=== PATIENT | female | born 1945 | race American Indian/Alaskan Native ===

== ENCOUNTER 2018-01-20 22:27 | Inpatient (IN) | payer BC, MEDICARE ==
--- NOTE | 2018-01-20 22:58 | C.PDOC ---
Chief Complaint (Nursing): Chest Pain Past Medical History Vital Signs: Last Vital Signs Temp 97.6 F 01/20/18 22:46 Pulse 94 H 01/20/18 22:46 Resp 26 H 01/20/18 22:46 BP 175/90 H 01/20/18 22:46 Pulse Ox 98 01/20/18 22:46 - Medical History PMH: Arthritis, Diabetes ("boarderline"), Diverticulitis, Hiatal Hernia, HTN Surgical History: Pacemaker - [facility] Procedures ANESTH INJECT-SPIN CANAL (01/08/05) INJECT STEROID (01/08/05) SPINAL CANAL INJECT NEC (01/08/05) Family History: States: Unknown Family Hx - Social History Hx Tobacco Use: No Hx Alcohol Use: No Hx Substance Use: No - Immunization History Hx Tetanus Toxoid Vaccination: Yes Hx Influenza Vaccination: Yes Hx Pneumococcal Vaccination: No ED Course And Treatment O2 Sat by Pulse Oximetry: 98 Disposition - Disposition
--- NOTE | 2018-01-20 23:05 | C.PDOC ---
History Of Present Illness 72 year old female with a Hx of NIDDM, HTN, HLD, s/p pacemaker presents to the ER with a complaint of upper back pain for the past several days that radiates to the upper chest. Patient states the pain is positional, it seems to be relieved by belching and worsened by movement of the shoulders and flexion of the neck. Denies SOB, diaphoresis, or prior CAD. Chief Complaint (Nursing): Chest Pain History Per: Patient History/Exam Limitations: no limitations Onset/Duration Of Symptoms: Days Current Symptoms Are (Timing): Still Present Associated Symptoms: denies: Nausea, Dyspnea, Diaphoresis, Syncope Modifying Factors: None Exacerbating Factors: Movement (Shoulders), Other (Flexion of neck) Alleviating Factors: None Recent travel outside of the [place]: No Past Medical History Reviewed: Historical Data, Nursing Documentation, Vital Signs Vital Signs: Last Vital Signs Temp 97.6 F 01/20/18 22:46 Pulse 60 01/21/18 05:33 Resp 22 01/21/18 05:33 BP 163/67 H 01/21/18 05:33 Pulse Ox 97 01/21/18 05:33 - Medical History PMH: Arthritis, Diabetes ("boarderline"), Diverticulitis, Hiatal Hernia, HTN Surgical History: Pacemaker - [facility] Procedures ANESTH INJECT-SPIN CANAL (01/08/05) INJECT STEROID (01/08/05) SPINAL CANAL INJECT NEC (01/08/05) Family History: States: Unknown Family Hx - Social History Hx Tobacco Use: No Hx Alcohol Use: No Hx Substance Use: No - Immunization History Hx Tetanus Toxoid Vaccination: Yes Hx Influenza Vaccination: Yes Hx Pneumococcal Vaccination: No Review Of Systems Constitutional: Negative for: Fever, Chills Cardiovascular: Positive for: Chest Pain Respiratory: Negative for: Shortness of Breath Gastrointestinal: Negative for: Nausea, Vomiting, Abdominal Pain Musculoskeletal: Positive for: Back Pain Physical Exam - Physical Exam Appears: Non-toxic, Other (Awake, alert) Skin: Normal Color, Warm, Dry Head: Atraumatic, Normacephalic Eye(s): bilateral: Normal Inspection Oral Mucosa: Moist Neck: Paracervical Tenderness (Over left trapezious with reproducible pain), Supple, Other (.Reproducible pain with flexion of the neck but no true meningismus. Left sternocleidomastoid tenderness with palpation) Chest: Symmetrical, Tenderness (On palpation) Cardiovascular: Rhythm Regular Respiratory: Normal Breath Sounds, No Rales, No Rhonchi, No Wheezing Gastrointestinal/Abdominal: Soft, No Tenderness, Hernia (Ventral) Back: No Vertebral Tenderness, No Paraspinal Tenderness Extremity: Normal ROM (x4) Neurological/Psych: Oriented x3, Normal Speech ED Course And Treatment - Laboratory Results Result Diagrams: 01/20/18 23:03 01/20/18 23:03 ECG: Interpreted By Me, Viewed By Me ECG Rhythm: V Paced (Atrial sensing) Interpretation Of ECG: QRS left bundloid configuration, no old EKGs for comparison. Rate From EC O2 Sat by Pulse Oximetry: 98 (Room air) Pulse Ox Interpretation: Normal - CT Scan/US CTA Other Rad Studies (CT/US): Read By Radiologist, Radiology Report Reviewed CT/US Interpretation: EXAM: CT Angiography Chest With Intravenous Contrast. CLINICAL HISTORY: 72 years old, female; Pain; Chest pain; Prior surgery; Surgery type: Pacemaker. TECHNIQUE: Axial computed tomographic angiography images of the chest with intravenous contrast using. pulmonary embolism protocol. All CT scans at this facility use one or more dose reduction. techniques, viz.: automated exposure control; ma/kV adjustment per patient size (including targeted. exams where dose is matched to indication; i.e. head); or iterative reconstruction technique. MIP reconstructed images were created and reviewed. Coronal and sagittal reformatted images were created and reviewed. CONTRAST: 100 mL of administered intravenously. COMPARISON: No relevant prior studies available. FINDINGS: Limitations: Motion artifact - mild to moderate. Pulmonary arteries: Few apparent defects along subsegmental branches of right lower lobe. pulmonary artery. No saddle embolus. Aorta: Mild atherosclerotic disease. No aneurysm. Lungs: Mild atelectasis/scarring. No consolidation. Pleural space: No significant effusion. No pneumothorax. Heart: [id number] cardiomegaly. Small to moderate pericardial effusion. Mediastinum: Small hiatal hernia. Bones/joints: Degenerative changes of spine. No acute fracture. Soft tissues: Unremarkable. Lymph nodes: No pathologically enlarged lymph nodes. Adrenals: Mild hypertrophy of adrenal glands. Tubes, lines and devices: RIGHT pacemaker. IMPRESSION: 1. Apparent distal pulmonary emboli. 2. Incidental/non-acute findings are described above. Medical Decision Making Medical Decision Making: Impression is atypical chest pain, likely musculoskeletal in origin, will send routine blood work, order EKG and analgesics. Disposition - Disposition Disposition: HOSPITALIZED Disposition Time: 06:57 Condition: FAIR - Clinical Impression Clinical Impression: Pulmonary embolism - Scribe Statement The provider has reviewed the documentation as recorded by the Scribtaylor Zuluaga All medical record entries made by the Scribe were at my direction and personally dictated by me. I have reviewed the chart and agree that the record accurately reflects my personal performance of the history, physical exam, medical decision making, and the department course for this patient. I have also personally directed, reviewed, and agree with the discharge instructions and disposition.
[2018-01-20 23:06] LABS: BASO % 0.5 % (0.0-2.0); EOS # 0.1 K/uL (0.0-0.7); EOS % 1.1 % (0.0-4.0); HEMOGLOBIN 13.5 g/dL (11.0-16.0); LYMPH # 2.5 K/uL (1.0-4.3); LYMPH % 30.7 % (20.0-40.0); MEAN CELL VOLUME 88.1 fL (81.0-99.0); MEAN CORPUSCULAR HEMOGLOBIN 31.2 pg (27.0-31.0); MEAN CORPUSCULAR HGB CONC 35.5 g/dL (33.0-37.0); MEAN PLATELET VOLUME 9.1 fL (7.2-11.7); MONO # 0.9 K/uL (0.0-0.8); MONO % 10.7 % (0.0-10.0); NEUT # 4.7 K/uL (1.8-7.0); RBC 4.33 Mil/uL (3.80-5.20); RED CELL DISTRIBUTION WIDTH 13.7 % (11.5-14.5); WHITE BLOOD COUNT 8.2 K/uL (4.8-10.8)
[2018-01-20 23:19] LABS: CALCIUM 8.7 mg/dl (8.6-10.4); GFR AFRICAN-AMERICAN > 60; GFR NON-AFRICAN AMERICAN > 60
[2018-01-20 23:22] LABS: ALT/SGPT 16 U/L (9-52); AST/SGOT 37 U/L (14-36); BLOOD UREA NITROGEN 13 mg/dL (7-17)
--- NOTE | 2018-01-21 02:57 | CT ---
EXAM: CT Angiography Chest With Intravenous Contrast CLINICAL HISTORY: 72 years old, female; Pain; Chest pain; Prior surgery; Surgery type: Pacemaker TECHNIQUE: Axial computed tomographic angiography images of the chest with intravenous contrast using pulmonary embolism protocol. All CT scans at this facility use one or more dose reduction techniques, viz.: automated exposure control; ma/kV adjustment per patient size (including targeted exams where dose is matched to indication; i.e. head); or iterative reconstruction technique. MIP reconstructed images were created and reviewed. Coronal and sagittal reformatted images were created and reviewed. CONTRAST: 100 mL of [id number] administered intravenously. COMPARISON: No relevant prior studies available. FINDINGS: Limitations: Motion artifact - mild to moderate. Pulmonary arteries: Few apparent defects along subsegmental branches of right lower lobe pulmonary artery. No saddle embolus. Aorta: Mild atherosclerotic disease. No aneurysm. Lungs: Mild atelectasis/scarring. No consolidation. Pleural space: No significant effusion. No pneumothorax. Heart: [id number] cardiomegaly. Small to moderate pericardial effusion. Mediastinum: Small hiatal hernia. Bones/joints: Degenerative changes of spine. No acute fracture. Soft tissues: Unremarkable. Lymph nodes: No pathologically enlarged lymph nodes. Adrenals: Mild hypertrophy of adrenal glands. Tubes, lines and devices: RIGHT pacemaker. IMPRESSION: 1. Apparent distal pulmonary emboli. 2. Incidental/non-acute findings are described above.
[2018-01-21] MEDS ORDERED: Heparin25000 units/250ml 1/2NS 25,000 UNITS/250 ML BAG IV ONE (03:16)
[2018-01-21 06:16] LABS: HDL CHOLESTEROL 69 mg/dL (30-70)
[2018-01-21 06:27] LABS: LDL CHOLESTEROL 91 mg/dL (0-129)
[2018-01-21 08:25] LABS: SQUAMOUS EPITHIAL < 1 /hpf (0-5); URINE AMORPHOUS SEDIMENT FEW /ul (<OCC); URINE BILIRUBIN NEGATIVE (NEGATIVE); URINE BLOOD 1+ (NEGATIVE); URINE CLARITY Hazy (Clear); URINE COLOR Yellow (YELLOW); URINE GLUCOSE (UA) NORMAL (Normal); URINE LEUKOCYTE ESTERASE NEG Leu/uL (Negative); URINE PROTEIN NEGATIVE (NEGATIVE); URINE UROBILINOGEN NORMAL mg/dL (0.2-1.0)
--- NOTE | 2018-01-21 08:43 | RAD ---
PROCEDURE: CHEST RADIOGRAPH, 1 VIEW HISTORY: chest pain COMPARISON: None available. FINDINGS: LUNGS: The lungs are well inflated and clear. PLEURA: No pneumothorax or pleural fluid seen. CARDIOVASCULAR: There is moderate cardiomegaly. There is right-sided dual lead transvenous permanent pacing device. OSSEOUS STRUCTURES: No significant abnormalities. VISUALIZED UPPER ABDOMEN: Normal. OTHER FINDINGS: None. IMPRESSION: No acute findings.
[2018-01-21 09:28] LABS: ALBUMIN 3.5 g/dL (3.5-5.0); ALT/SGPT 26 U/L (9-52); AST/SGOT 60 U/L (14-36); BLOOD UREA NITROGEN 10 mg/dL (7-17); CALCIUM 8.6 mg/dl (8.6-10.4); GFR AFRICAN-AMERICAN > 60; GFR NON-AFRICAN AMERICAN > 60
[2018-01-21] MEDS: (Novolin R) Insulin Human Regular 100 units/ml vial SC SCH ×4 (10:27→21:45)
[2018-01-21 11:02] LABS: BASO % 0.5 % (0.0-2.0); EOS # 0.1 K/uL (0.0-0.7); EOS % 1.2 % (0.0-4.0); HEMOGLOBIN 14.2 g/dL (11.0-16.0); LYMPH # 2.1 K/uL (1.0-4.3); MEAN CELL VOLUME 89.1 fL (81.0-99.0); MEAN CORPUSCULAR HEMOGLOBIN 31.1 pg (27.0-31.0); MEAN CORPUSCULAR HGB CONC 34.9 g/dL (33.0-37.0); MEAN PLATELET VOLUME 9.5 fL (7.2-11.7); MONO # 0.5 K/uL (0.0-0.8); MONO % 8.3 % (0.0-10.0); NEUT # 3.5 K/uL (1.8-7.0); NRBC % 0.1 % (0.0-2.0); RBC 4.55 Mil/uL (3.80-5.20); RED CELL DISTRIBUTION WIDTH 13.8 % (11.5-14.5); WHITE BLOOD COUNT 6.3 K/uL (4.8-10.8)
[2018-01-21] MEDS ORDERED: Heparin25000 units/250ml 1/2NS 25,000 UNITS/250 ML BAG IV PRN ×2 (11:21→13:00)
--- NOTE | 2018-01-21 11:23 | CP.PCM.PN ---
Subjective - Date & Time of Evaluation Date of Evaluation: 01/21/18 Time of Evaluation: 11:00 - Subjective Subjective: H&P dictated #[id number] Objective - Vital Signs/Intake and Output Vital Signs (last 24 hours): Temp Pulse Resp BP Pulse Ox 98.0 F 60 16 163/67 H 97 01/21/18 07:30 01/21/18 07:30 01/21/18 07:30 01/21/18 07:30 01/21/18 07:30 - Medications Medications: Current Medications Acetaminophen (Tylenol 325mg Tab) 650 mg PO Q6 PRN PRN Reason: pain Last Admin: 01/21/18 05:34 Dose: 650 mg Amlodipine Besylate (Norvasc) 10 mg PO HS [facility] Home Med (Atorvastatin Calcium [Lipitor]) 40 mg PO HS [facility] Heparin Sodium/Sodium Chloride (Heparin 41597 Units/250ml 1/2 Normal Saline) 25 ,000 units in 250 mls @ 13.717 mls/hr IV .[id number] PRN; Protocol; 18 UNITS/KG/HR PRN Reason: PROTOCOL Insulin Human Regular (Novolin R) 0 unit SC ACHS [facility] PRN Reason: Protocol Last Admin: 01/21/18 10:27 Dose: Not Given Metformin HCl (Glucophage Xr) 750 mg PO BID [facility] Metoprolol Succinate (Toprol Xl) 50 mg PO DAILY [facility] - Labs Labs: 01/21/18 10:55 01/21/18 05:56 APTT 32 SECONDS (21-34) 01/21/18 03:26
[2018-01-21] MEDS ORDERED: Potassium Chloride 20 mEq ER Tab PO ONE (12:01)
[2018-01-21] MEDS: Metoprolol Succinate 50 mg XL Tab PO SCH (12:18)
[2018-01-21] MEDS ORDERED: Alum-Mag Hydrox-Simethicone Susp (30 mL) PO PRN (12:22)
--- NOTE | 2018-01-21 15:54 | CP.PCM.CON ---
History of Present Illness - History of Present Illness History of Present Illness: Reason for consultation: pulmonary embolism 72-year-old female with hypertension, diabetes, hyperlipidemia, status post permanent pacemaker insertion presented to emergency room complaining of upper back pain for the past few days radiating to the upper chest. CAT scan of the chest showed subsegmental pulmonary embolism. Patient also complaining of dyspnea on exertion for the past few weeks. Denies fever and chills. Review of Systems - Review of Systems All systems: reviewed and no additional remarkable complaints except (back and chest pain) Past Patient History - Past Medical History & Family History Past Medical History?: Yes - Past Social History Smoking Status: Never Smoked - CARDIAC Hx Cardiac Disorders: Yes Hx Hypertension: Yes Hx Pacemaker: Yes - PULMONARY Hx Respiratory Disorders: No - NEUROLOGICAL Hx Neurological Disorder: No - HEENT Hx HEENT Problems: No - RENAL Hx Chronic Kidney Disease: No - ENDOCRINE/METABOLIC Hx Endocrine Disorders: No - HEMATOLOGICAL/ONCOLOGICAL Hx Blood Disorders: No - INTEGUMENTARY Hx Dermatological Problems: No - MUSCULOSKELETAL/RHEUMATOLOGICAL Hx Musculoskeletal Disorders: Yes Hx Arthritis: Yes Hx Falls: Yes - GASTROINTESTINAL Hx Gastrointestinal Disorders: Yes Hx Diverticulitis: Yes - GENITOURINARY/GYNECOLOGICAL Hx Genitourinary Disorders: No - PSYCHIATRIC Hx Psychophysiologic Disorder: No Hx Substance Use: No - SURGICAL HISTORY Hx Surgeries: Yes Hx Cataract Extraction: Yes Hx Hysterectomy: Yes Hx Orthopedic Surgery: Yes (right rotator cuff) - ANESTHESIA Hx Anesthesia: Yes Hx Anesthesia Reactions: No Hx Malignant Hyperthermia: No Has any member of the family had a problem w/ anesthesia?: No Meds Allergies/Adverse Reactions: Allergies Allergy/AdvReac Type Severity Reaction Status Date / Time No Known Allergies Allergy Verified 12/27/14 00:37 - Medications Medications: Current Medications Acetaminophen (Tylenol 325mg Tab) 650 mg PO Q6 PRN PRN Reason: pain Last Admin: 01/21/18 12:18 Dose: 650 mg Al Hydrox/Mg Hydrox/Simethicone (Maalox Plus 30 Ml) 30 ml PO Q8H PRN PRN Reason: Indigestion / Heartburn Last Admin: 01/21/18 12:40 Dose: 30 ml Amlodipine Besylate (Norvasc) 10 mg PO HS [facility] Heparin Sodium/Sodium Chloride (Heparin 41911 Units/250ml 1/2 Normal Saline) 25 ,000 units in 250 mls @ 11.431 mls/hr IV .[id number] PRN; Protocol; 15 UNITS/KG/HR PRN Reason: PROTOCOL Last Admin: 01/21/18 12:56 Dose: 15 units/kg/hr, 11.431 mls/hr Insulin Human Regular (Novolin R) 0 unit SC ACHS [facility] PRN Reason: Protocol Last Admin: 01/21/18 13:02 Dose: Not Given [facility] Metoprolol Succinate (Toprol Xl) 50 mg PO DAILY [facility] Last Admin: 01/21/18 12:18 Dose: 50 mg Rosuvastatin Calcium (Crestor) 20 mg PO [facility] Physical Exam - Head Exam Head Exam: ATRAUMATIC, NORMOCEPHALIC - Eye Exam Eye Exam: Normal appearance - ENT Exam ENT Exam: Mucous Membranes Moist - Neck Exam Neck exam: Positive for: Normal Inspection - Respiratory Exam Respiratory Exam: Clear to Auscultation Bilateral - Cardiovascular Exam Cardiovascular Exam: REGULAR RHYTHM - GI/Abdominal Exam GI & Abdominal Exam: Normal Bowel Sounds, Soft Results - Vital Signs Recent Vital Signs: Last Vital Signs Temp 98.0 F 01/21/18 07:30 Pulse 60 01/21/18 07:30 Resp 16 01/21/18 07:30 BP 163/67 H 01/21/18 07:30 Pulse Ox 97 01/21/18 07:30 - Labs Result Diagrams: 01/21/18 10:55 01/21/18 05:56 Labs: Laboratory Results - last 24 hr 01/20/18 01/20/18 01/20/18 23:03 23:03 23:19 WBC 8.2 RBC 4.33 Hgb 13.5 Hct 38.2 MCV 88.1 MCH 31.2 H MCHC 35.5 RDW 13.7 Plt Count 197 MPV 9.1 Neut % (Auto) 57.0 Lymph % (Auto) 30.7 Conway % (Auto) 10.7 H Eos % (Auto) 1.1 Baso % (Auto) 0.5 Neut # (Auto) 4.7 Lymph # (Auto) 2.5 Conway # (Auto) 0.9 H Eos # (Auto) 0.1 Baso # (Auto) 0.0 APTT D-Dimer, Quantitative 773 H Sodium 140 Potassium 5.0 Chloride 98 Carbon Dioxide 31 H Anion Gap 16 BUN 13 Creatinine 0.7 Est GFR ( Amer) > 60 Est GFR (Non-Af Amer) > 60 POC Glucose (mg/dL) Random Glucose 120 H Hemoglobin A1c Calcium 8.7 Total Bilirubin 1.2 AST 37 H ALT 16 Alkaline Phosphatase 62 Troponin I 0.0180 Total Protein 7.9 Albumin 4.0 Globulin 3.9 Albumin/Globulin Ratio 1.0 Triglycerides Cholesterol LDL Cholesterol Direct HDL Cholesterol Alpha Fetoprotein Carcinoembryonic Ag CA 19-9 Antigen CA 125 Antigen TSH 3rd Generation Urine Color Urine Clarity Urine pH Ur Specific [place] Urine Protein Urine Glucose (UA) Urine Ketones Urine Blood Urine Nitrate Urine Bilirubin Urine Urobilinogen Ur Leukocyte Esterase Urine WBC (Auto) Urine RBC (Auto) Ur Squamous Epith Cells Amorphous Sediment 01/21/18 01/21/18 01/21/18 03:26 05:56 08:11 WBC RBC Hgb Hct MCV MCH MCHC RDW Plt Count MPV Neut % (Auto) Lymph % (Auto) Conway % (Auto) Eos % (Auto) Baso % (Auto) Neut # (Auto) Lymph # (Auto) Conway # (Auto) Eos # (Auto) Baso # (Auto) APTT 32 D-Dimer, Quantitative Sodium 140 Potassium 3.5 L Chloride 103 Carbon Dioxide 26 Anion Gap 15 BUN 10 Creatinine 0.5 L Est GFR ( Amer) > 60 Est GFR (Non-Af Amer) > 60 POC Glucose (mg/dL) Random Glucose 132 H Hemoglobin A1c Calcium 8.6 Total Bilirubin 0.9 AST 60 H D ALT 26 Alkaline Phosphatase 68 Troponin I Total Protein 6.9 Albumin 3.5 Globulin 3.4 Albumin/Globulin Ratio 1.0 Triglycerides 66 Cholesterol 185 LDL Cholesterol Direct 91 HDL Cholesterol 69 Alpha Fetoprotein Carcinoembryonic Ag 3.4 H CA 19-9 Antigen < 1.4 CA 125 Antigen 5.7 TSH 3rd Generation 1.38 Urine Color Yellow Urine Clarity Hazy Urine pH 8.0 Ur Specific [place] 1.021 Urine Protein Negative Urine Glucose (UA) Normal Urine Ketones Negative Urine Blood 1+ H Urine Nitrate Negative Urine Bilirubin Negative Urine Urobilinogen Normal Ur Leukocyte Esterase Neg Urine WBC (Auto) 1 Urine RBC (Auto) < 1 Ur Squamous Epith Cells < 1 Amorphous Sediment Few H 01/21/18 01/21/18 01/21/18 10:55 10:55 10:55 WBC 6.3 RBC 4.55 Hgb 14.2 Hct 40.6 MCV 89.1 MCH 31.1 H MCHC 34.9 RDW 13.8 Plt Count 203 MPV 9.5 Neut % (Auto) 56.0 Lymph % (Auto) 34.0 Conway % (Auto) 8.3 Eos % (Auto) 1.2 Baso % (Auto) 0.5 Neut # (Auto) 3.5 Lymph # (Auto) 2.1 [place] # (Auto) 0.5 Eos # (Auto) 0.1 Baso # (Auto) 0.0 APTT 127 H* D D-Dimer, Quantitative Sodium Potassium Chloride Carbon Dioxide Anion Gap BUN Creatinine Est GFR ( Amer) Est GFR (Non-Af Amer) POC Glucose (mg/dL) Random Glucose Hemoglobin A1c 6.3 Calcium Total Bilirubin AST ALT Alkaline Phosphatase Troponin I Total Protein Albumin Globulin Albumin/Globulin Ratio Triglycerides Cholesterol LDL Cholesterol Direct HDL Cholesterol Alpha Fetoprotein Carcinoembryonic Ag CA 19-9 Antigen CA 125 Antigen TSH 3rd Generation Urine Color Urine Clarity Urine pH Ur Specific [place] Urine Protein Urine Glucose (UA) Urine Ketones Urine Blood Urine Nitrate Urine Bilirubin Urine Urobilinogen Ur Leukocyte Esterase Urine WBC (Auto) Urine RBC (Auto) Ur Squamous Epith Cells Amorphous Sediment 01/21/18 01/21/18 10:55 11:16 WBC RBC Hgb Hct MCV MCH MCHC RDW Plt Count MPV Neut % (Auto) Lymph % (Auto) [place] % (Auto) Eos % (Auto) Baso % (Auto) Neut # (Auto) Lymph # (Auto) [place] # (Auto) Eos # (Auto) Baso # (Auto) APTT D-Dimer, Quantitative Sodium Potassium Chloride Carbon Dioxide Anion Gap BUN Creatinine Est GFR ( Amer) Est GFR (Non-Af Amer) POC Glucose (mg/dL) 105 Random Glucose Hemoglobin A1c Calcium Total Bilirubin AST ALT Alkaline Phosphatase Troponin I Total Protein Albumin Globulin Albumin/Globulin Ratio Triglycerides Cholesterol LDL Cholesterol Direct HDL Cholesterol Alpha Fetoprotein 1.6 Carcinoembryonic Ag CA 19-9 Antigen CA 125 Antigen TSH 3rd Generation Urine Color Urine Clarity Urine pH Ur Specific [place] Urine Protein Urine Glucose (UA) Urine Ketones Urine Blood Urine Nitrate Urine Bilirubin Urine Urobilinogen Ur Leukocyte Esterase Urine WBC (Auto) Urine RBC (Auto) Ur Squamous Epith Cells Amorphous Sediment Assessment & Plan (1) Pulmonary embolism Status: Acute Comment: continue IV heparin. Venous Doppler lower extremities. CAT scan of the abdomen
[2018-01-21] MEDS: Heparin25000 units/250ml 1/2NS 25,000 UNITS/250 ML BAG IV PRN (20:17)
--- NOTE | 2018-01-21 23:35 | HP ---
CHIEF COMPLAINT: Progressive worsening of back pain radiating to the upper chest for the past 3 days. HISTORY OF PRESENT ILLNESS: Ms. Mcduffie is a 72-year-old female with past medical history of hypertension, diabetes mellitus, osteoarthritis, history of diverticulitis and hiatal hernia, hyperlipidemia, status post permanent pacemaker placement at [facility] in 2008, has been following up with Dr. Yossi Robbins from [facility], came in to the ED with complaints of 3-day history of progressive worsening of upper back pain radiating to the upper chest. As per the patient, she started having left-sided neck pain and upper back pain. Pain was continuous, 8 to 9/10, radiating to the upper chest. She initially felt like it was gas pain, and she started taking Mylanta without any significant relief. She had similar kind of pain in November at which time, they thought it was from her arthritis in the cervical spine, and she was given injection with which she felt better. This time she thought it was similar, but also felt like gas pain. She denied any associated shortness of breath or chest tightness. Denied any nausea, vomiting, headache, dizziness. Denied any urinary complaints. Denied any leg pains or leg cramps. Denied any other neurologic symptoms. PAST MEDICAL HISTORY: As discussed, hypertension, diabetes mellitus, arthritis, diverticulitis, hiatal hernia, history of permanent pacemaker placement. PAST SURGICAL HISTORY: Hysterectomy done many years ago. Pacemaker placement in 2008. FAMILY HISTORY: Father from alcohol abuse. Mother from dementia and single kidney. PERSONAL HISTORY: She is retired, , lives with her , having four children. One child at age 40 secondary to CVA. SOCIAL HISTORY: She denied smoking, alcohol, or drug abuse. Drinks alcohol socially. ALLERGIES: NO KNOWN DRUG ALLERGIES. HOME MEDICATIONS: Her medications at home include metoprolol 50 mg daily, Lipitor 40 mg p.o. at bedtime, metformin 750 mg p.o. b.i.d., amlodipine 10 mg p.o. at bedtime. REVIEW OF SYSTEMS: As described in history of present illness. All other systems reviewed and were found to be negative. PHYSICAL EXAMINATION: GENERAL: An elderly female, lying in bed, in no acute distress. VITAL SIGNS: Blood pressure 149/61, pulse 80, respirations 20, temperature 98 degrees Fahrenheit, O2 saturations 97% on room air. HEENT: Pupils are equal, round, and reacting to light and accommodation. Extraocular muscles intact. No icterus. No pallor. No oral thrush. No pharyngeal congestion. NECK: Supple. No JVD. LUNGS: Bilateral vesicular breath sounds. No wheezing. No rhonchi. CVS: S1, S2 present regular. Permanent pacemaker in the right upper chest. ABDOMEN: Soft, nontender. Bowel sounds present. No guarding. No rigidity. No rebound tenderness noted. CENTRAL NERVOUS SYSTEM: Alert, awake, oriented x3. No focal deficits noted. EXTREMITIES: No edema. Palpable peripheral pulses. MUSCULOSKELETAL SYSTEM: There is minimal tenderness in the upper part of the left back and the neck region. LABORATORY DATA: Labs done from ED, WBC 8.2, hemoglobin 13.5, hematocrit 38.2, platelets 197. D-dimer 773, PTT 32. Sodium 140, potassium 5.0, chloride 98, bicarb 31, BUN 13, creatinine 0.7, glucose 120. Hemoglobin A1c 6.3, calcium 8.7, total bili 1.2, AST 37, ALT 16, alkaline phosphatase 62, troponin 0.0180, total protein 7.9, albumin 4. CT of the chest consistent with distal pulmonary emboli, mild to moderate cardiomegaly, small amount of pericardial effusion. No saddle embolus. Chest x-ray no acute findings. EKG consistent with paced rhythm at 86 beats per minute. ASSESSMENT AND PLAN: An elderly female with history of hypertension, diabetes mellitus, history of permanent pacemaker placement, arthritis, history of diverticulitis and hiatal hernia who has been following up with Dr. Yossi Robbins as primary care physician. Dr. Bowens of cardiology came into the emergency room for persistent symptoms of left upper back pain radiating to the anterior chest, progressively getting worse over the past 3 days. In the ED, the patient was found to be having CT chest positive for distal pulmonary emboli and the patient is being admitted for further management. 1. Pulmonary embolism in an elderly patient, rule out any occult malignancy, rule out deep venous thrombosis. 2. Hypertension. 3. Diabetes mellitus. 4. History of chronic pacemaker placement. 5. History of arthritis. PLAN: The patient is being admitted to telemetry. The patient was started on heparin drip. We will titrate heparin drip. Pulmonary consult with Dr. Honeycutt. We will continue with her home medications. We will check hypercoagulable workup and do malignancy workup. The patient claims that she had mammogram about 2 years ago, which was negative and underwent colonoscopy about 4 years ago which was negative as per the patient. We will give Pepcid for GI prophylaxis and Maalox for dyspepsia. We will follow up with Pulmonary and add further recommendation as outlined clinical course progresses. Kate Marques MD
[2018-01-22] MEDS: (Novolin R) Insulin Human Regular 100 units/ml vial SC SCH ×4 (07:34→21:28)
--- NOTE | 2018-01-22 09:24 | VASCLAB ---
PROCEDURE: Lower Extremity Venous Duplex Exam. HISTORY: Pulmonary Emboli, r/o dvt PRIORS: None. TECHNIQUE: Bilateral common femoral, femoral, popliteal and posterior tibial, peroneal and great saphenous veins were evaluated. Flow was assessed with color Doppler, compressibility, assessment of phasic flow and augmentation response. Report prepared by Mo Balderas, SKINNY, RVT FINDINGS: RIGHT: 1. Common Femoral Vein: 1.1. Compressibility - Fully compressible: Thrombus - None : Flow - Phasic: Augmentation -Normal: Reflux - None. 2. Femoral Vein: 2.1. Compressibility - Fully compressible: Thrombus - None : Flow - Phasic: Augmentation -Normal: Reflux - None. 3. Popliteal Vein: 3.1. Compressibility - Fully compressible: Thrombus - None : Flow - Phasic: Augmentation -Normal: Reflux - None. 4. Posterior Tibial Vein: 4.1. Compressibility - Fully compressible: Thrombus - None: Flow - Phasic: Augmentation -Normal: Reflux - None. 5. Peroneal Vein: 5.1. Compressibility - Fully compressible: Thrombus - None: Flow - Phasic: Augmentation -Normal: Reflux - None. 6. Great Saphenous Vein: 6.1. Compressibility - Fully compressible: Thrombus - None: Flow - Phasic: Augmentation - Normal: Reflux - None. LEFT: 1. Common Femoral Vein: 1.1. Compressibility - Fully compressible: Thrombus - None: Flow - Phasic: Augmentation -Normal: Reflux - None. 2. Femoral Vein: 2.1. Compressibility - Fully compressible: Thrombus - None: Flow - Phasic: Augmentation -Normal: Reflux - None. 3. Popliteal Vein: 3.1. Compressibility - Fully compressible: Thrombus - None : Flow - Phasic: Augmentation -Normal: Reflux - None. 4. Posterior Tibial Vein: 4.1. Compressibility - Fully compressible: Thrombus - None: Flow - Phasic: Augmentation -Normal: Reflux - None. 5. Peroneal Vein: 5.1. Compressibility - Fully compressible: Thrombus - None: Flow - Phasic: Augmentation -Normal: Reflux - None. 6. Great Saphenous Vein: 6.1. Compressibility - Fully compressible: Thrombus - None: Flow - Phasic: Augmentation - Normal: Reflux - None. OTHER FINDINGS: Right: None significant. Left: None significant. IMPRESSION: Right: No evidence of deep or superficial vein thrombosis of the right lower extremity. Normal valve function noted of the right side. Left: No evidence of deep or superficial vein thrombosis of the left lower extremity. Normal valve function noted of the left side.
[2018-01-22] MEDS: Metoprolol Succinate 50 mg XL Tab PO SCH (09:51)
[2018-01-22 11:14] LABS: MEAN CELL VOLUME 89.6 fL (81.0-99.0); MEAN CORPUSCULAR HEMOGLOBIN 31.1 pg (27.0-31.0); MEAN CORPUSCULAR HGB CONC 34.7 g/dL (33.0-37.0); MEAN PLATELET VOLUME 9.8 fL (7.2-11.7); RBC 4.49 Mil/uL (3.80-5.20); RED CELL DISTRIBUTION WIDTH 13.9 % (11.5-14.5); WHITE BLOOD COUNT 5.9 K/uL (4.8-10.8)
--- NOTE | 2018-01-22 15:00 | CP.PCM.PN ---
Subjective - Date & Time of Evaluation Date of Evaluation: 01/22/18 Time of Evaluation: 15:00 - Subjective Subjective: Progress note dictated #[id number] Objective - Vital Signs/Intake and Output Vital Signs (last 24 hours): Temp Pulse Resp BP Pulse Ox 98.5 F 60 18 137/67 96 01/22/18 07:30 01/22/18 12:00 01/22/18 07:30 01/22/18 07:30 01/22/18 07:30 Intake and Output: 01/22/18 01/22/18 06:59 18:59 Intake Total 0 560.8 Balance 0 560.8 - Medications Medications: Current Medications Acetaminophen (Tylenol 325mg Tab) 650 mg PO Q6 PRN PRN Reason: pain Last Admin: 01/22/18 08:49 Dose: 650 mg Al Hydrox/Mg Hydrox/Simethicone (Maalox Plus 30 Ml) 30 ml PO Q8H PRN PRN Reason: Indigestion / Heartburn Last Admin: 01/21/18 12:40 Dose: 30 ml Amlodipine Besylate (Norvasc) 10 mg PO HS [facility] Last Admin: 01/21/18 21:44 Dose: 10 mg Heparin Sodium/Sodium Chloride (Heparin 44627 Units/250ml 1/2 Normal Saline) 25 ,000 units in 250 mls @ 9.907 mls/hr IV .Q24H PRN; Protocol; 13 UNITS/KG/HR PRN Reason: PROTOCOL Last Titration: 01/22/18 03:41 Dose: 10 units/kg/hr, 7.62 mls/hr Insulin Human Regular (Novolin R) 0 unit SC ACHS [facility] PRN Reason: Protocol Last Admin: 01/22/18 11:39 Dose: Not Given Metformin HCl (Glucophage Xr) 750 mg PO BIDCC [facility] Last Admin: 01/22/18 08:49 Dose: 750 mg Metoprolol Succinate (Toprol Xl) 50 mg PO DAILY [facility] Last Admin: 01/22/18 09:51 Dose: 50 mg Rosuvastatin Calcium (Crestor) 20 mg PO HS [facility] Last Admin: 01/21/18 21:42 Dose: 20 mg - Labs Labs: 01/22/18 11:09 01/21/18 05:56 APTT 74 SECONDS (21-34) H D 01/22/18 11:09
--- NOTE | 2018-01-22 16:49 | CP.PCM.PN ---
Subjective - Date & Time of Evaluation Date of Evaluation: 01/22/18 Time of Evaluation: 10:30 - Subjective Subjective: patient seen and examined Sitting comfortably in no acute distress Complaining of neck pain No further chest pain No shortness of breath Afebrile On IV heparin Objective - Vital Signs/Intake and Output Vital Signs (last 24 hours): Temp Pulse Resp BP Pulse Ox 97.8 F 60 18 158/72 H 95 01/22/18 15:49 01/22/18 15:49 01/22/18 15:49 01/22/18 15:49 01/22/18 15:49 Intake and Output: 01/22/18 01/22/18 06:59 18:59 Intake Total 0 560.8 Balance 0 560.8 - Medications Medications: Current Medications Acetaminophen (Tylenol 325mg Tab) 650 mg PO Q6 PRN PRN Reason: pain Last Admin: 01/22/18 08:49 Dose: 650 mg Al Hydrox/Mg Hydrox/Simethicone (Maalox Plus 30 Ml) 30 ml PO Q8H PRN PRN Reason: Indigestion / Heartburn Last Admin: 01/21/18 12:40 Dose: 30 ml Amlodipine Besylate (Norvasc) 10 mg PO HS [facility] Last Admin: 01/21/18 21:44 Dose: 10 mg Heparin Sodium/Sodium Chloride (Heparin 92749 Units/250ml 1/2 Normal Saline) 25 ,000 units in 250 mls @ 9.907 mls/hr IV .Q24H PRN; Protocol; 13 UNITS/KG/HR PRN Reason: PROTOCOL Last Titration: 01/22/18 03:41 Dose: 10 units/kg/hr, 7.62 mls/hr Insulin Human Regular (Novolin R) 0 unit SC ACHS [facility] PRN Reason: Protocol Last Admin: 01/22/18 11:39 Dose: Not Given Metformin HCl (Glucophage Xr) 750 mg PO BIDCC [facility] Last Admin: 01/22/18 08:49 Dose: 750 mg Metoprolol Succinate (Toprol Xl) 50 mg PO DAILY [facility] Last Admin: 01/22/18 09:51 Dose: 50 mg Oxycodone/Acetaminophen (Percocet 5/325 Mg Tab) 1 tab PO Q6H PRN PRN Reason: Pain, severe (8-10) Stop: 01/25/18 15:33 Rosuvastatin Calcium (Crestor) 20 mg PO HS [facility] Last Admin: 01/21/18 21:42 Dose: 20 mg - Labs Labs: 01/22/18 11:09 01/21/18 05:56 APTT 74 SECONDS (21-34) H D 01/22/18 11:09 - Head Exam Head Exam: ATRAUMATIC, NORMOCEPHALIC - ENT Exam ENT Exam: Mucous Membranes Moist - Neck Exam Neck Exam: Full ROM, Normal Inspection - Respiratory Exam Respiratory Exam: Clear to Ausculation Bilateral - Cardiovascular Exam Cardiovascular Exam: REGULAR RHYTHM - GI/Abdominal Exam GI & Abdominal Exam: Soft, Normal Bowel Sounds - Extremities Exam Extremities Exam: Pedal Edema - Neurological Exam Neurological Exam: Alert, Oriented x3 Assessment and Plan (1) Pulmonary embolism Assessment & Plan: switch to oral anticoagulation Continue present treatment Status: Acute
--- NOTE | 2018-01-22 17:02 | RAD ---
PROCEDURE: Radiographs of the Left Shoulder HISTORY: pain COMPARISON: No prior. FINDINGS: BONES: No acute fracture or destructive bony lesion identified. JOINTS: Degenerative changes are appreciate the acromioclavicular joint prominently but are mild at the acromioclavicular joint. SOFT TISSUES: Calcific tendinopathy is suggested at the region of the rotator cuff. MRI may be helpful if clinically warranted for additional imaging evaluation. OTHER FINDINGS: Portions of cardiac pacemaker incidentally captured. Cardiomegaly is also noted. IMPRESSION: No acute fracture, subluxation or dislocation. Degenerative findings as discussed above. Incidental cardiomegaly and pacemaker identified.
--- NOTE | 2018-01-22 17:03 | RAD ---
PROCEDURE: Cervical Spine Radiographs. HISTORY: Pain. COMPARISON: None. FINDINGS: BONES: Alignment maintained. No fracture. Dens Intact. DISC SPACES: Advanced multilevel cervical spondylosis appreciated concentrated the mid cervical spinal levels. Multilevel facet arthropathy is also diffuse.Normal. SOFT TISSUES: Unremarkable grossly. OTHER FINDINGS: None. IMPRESSION: Multilevel cervical spondylosis without definite fracture or spondylolisthesis identified.
[2018-01-22] MEDS: Oxycodone/Acetaminophen 5/325 mg Tab PO PRN (17:47)
--- NOTE | 2018-01-22 23:06 | CARD ---
APPROVED REPORT EKG Measurement Heart [id number] <Conclusion> Atrial-sensed ventricular-paced rhythm with prolonged AV conduction Abnormal ECG
--- NOTE | 2018-01-23 03:43 | PN ---
DATE: 01/22/2018. SUBJECTIVE: The patient was seen and examined at bedside. The patient is still complaining of left shoulder pain, left sided neck pain and complaining of dyspepsia and back pain. Denies any chest pain. Denies any other shortness of breath or denies any neurologic symptoms. All other systems reviewed and were found to be negative. PHYSICAL EXAMINATION: GENERAL: On examination, elderly female lying in bed in no acute distress. VITAL SIGNS: Blood pressure 136/67, pulse 72, respirations 18, temperature 98.5 degrees Fahrenheit, O2 saturation 96% on room air. HEENT: Pupils equal, round and reacting to light and accommodation. Extraocular muscles intact. No icterus. No pallor. No oral thrush. No pharyngeal congestion. NECK: Supple. No JVD. MUSCULOSKELETAL: Tenderness along the cervical spine and left-sided upper part of the back and the shoulder joint. LUNGS: Bilateral vesicular breath sounds. No wheezing. No rhonchi. CVS: S1, S2 present. Regular. ABDOMEN: Soft and nontender. Bowel sounds are present. No guarding. No rigidity. No rebound tenderness noted. CASE MAKER: Alert, awake, oriented x3. No focal deficits noted. EXTREMITIES: No edema. Palpable peripheral pulses. MEDICATIONS: Tylenol as needed, Maalox 30 mL every 8 hours as needed, Norvasc 10 mg p.o. h.s., heparin IV, Glucophage 750 mg p.o. b.i.d., metoprolol 50 mg p.o. daily, Percocet 1 tablet p.o. every 6 p.r.n., Crestor 20 mg p.o. h.s. LABORATORY DATA: Today, WBC 5.9, hemoglobin 14.0, hematocrit 40.2, platelets 207, glucose is 95 and 109. Shoulder x-ray consistent with no acute fracture subluxation or dislocation degenerative findings noted. Calcific tendinopathy. Cervical spine x-ray consistent with multilevel cervical spondylosis without definite fracture or spondylolisthesis. ASSESSMENT AND PLAN: Elderly female with history of hypertension, diabetes mellitus, arthritis, status post permanent pacemaker placement, admitted for pulmonary embolism, left shoulder pain from calcific tendinopathy and cervical spondylosis with worsening left shoulder and neck pain. The patient is on heparin drip. We will give Percocet for left shoulder pain and neck pain. We will obtain orthopedic evaluation, pulmonary evaluation appreciated. We will check echocardiogram. Continue with other current medication. We will request physical therapy and occupational therapy. We will add further recommendations as her clinical course progresses. Kate Marques MD
[2018-01-23 07:29] LABS: HEMOGLOBIN 13.4 g/dL (11.0-16.0); MEAN CELL VOLUME 89.3 fL (81.0-99.0); MEAN CORPUSCULAR HEMOGLOBIN 31.2 pg (27.0-31.0); MEAN CORPUSCULAR HGB CONC 34.9 g/dL (33.0-37.0); MEAN PLATELET VOLUME 9.2 fL (7.2-11.7); RBC 4.29 Mil/uL (3.80-5.20); RED CELL DISTRIBUTION WIDTH 13.6 % (11.5-14.5)
[2018-01-23] MEDS: (Novolin R) Insulin Human Regular 100 units/ml vial SC SCH ×4 (07:35→21:33)
[2018-01-23] MEDS: Metoprolol Succinate 50 mg XL Tab PO SCH (09:06)
[2018-01-23 09:42] LABS: ALBUMIN 3.8 g/dL (3.5-5.0); ALT/SGPT 9 U/L (9-52); AST/SGOT 35 U/L (14-36); BLOOD UREA NITROGEN 11 mg/dL (7-17); CALCIUM 9.1 mg/dl (8.6-10.4); GFR AFRICAN-AMERICAN > 60; GFR NON-AFRICAN AMERICAN > 60
--- NOTE | 2018-01-23 11:05 | CP.PCM.PN ---
Subjective - Date & Time of Evaluation Date of Evaluation: 01/23/18 Time of Evaluation: 11:05 - Subjective Subjective: Progress note dictated #[id number] Objective - Vital Signs/Intake and Output Vital Signs (last 24 hours): Temp Pulse Resp BP Pulse Ox 97.9 F 62 20 152/71 H 96 01/23/18 07:50 01/23/18 07:50 01/23/18 07:50 01/23/18 07:50 01/23/18 07:50 - Medications Medications: Current Medications Acetaminophen (Tylenol 325mg Tab) 650 mg PO Q6 PRN PRN Reason: pain Last Admin: 01/22/18 08:49 Dose: 650 mg Al Hydrox/Mg Hydrox/Simethicone (Maalox Plus 30 Ml) 30 ml PO Q8H PRN PRN Reason: Indigestion / Heartburn Last Admin: 01/21/18 12:40 Dose: 30 ml Amlodipine Besylate (Norvasc) 10 mg PO HS [facility] Last Admin: 01/22/18 21:40 Dose: 10 mg Heparin Sodium/Sodium Chloride (Heparin 08030 Units/250ml 1/2 Normal Saline) 25 ,000 units in 250 mls @ 9.907 mls/hr IV .Q24H PRN; Protocol; 13 UNITS/KG/HR PRN Reason: PROTOCOL Last Titration: 01/22/18 03:41 Dose: 10 units/kg/hr, 7.62 mls/hr Insulin Human Regular (Novolin R) 0 unit SC ACHS [facility] PRN Reason: Protocol Last Admin: 01/23/18 07:35 Dose: Not Given Metformin HCl (Glucophage Xr) 750 mg PO BIDCC [facility] Last Admin: 01/23/18 08:50 Dose: 750 mg Metoprolol Succinate (Toprol Xl) 50 mg PO DAILY [facility] Last Admin: 01/23/18 09:06 Dose: 50 mg Oxycodone/Acetaminophen (Percocet 5/325 Mg Tab) 1 tab PO Q6H PRN PRN Reason: Pain, severe (8-10) Stop: 01/25/18 15:33 Last Admin: 01/22/18 17:47 Dose: 1 tab Rosuvastatin Calcium (Crestor) 20 mg PO HS [facility] Last Admin: 01/22/18 21:40 Dose: 20 mg - Labs Labs: 01/23/18 07:13 01/23/18 07:13 APTT 70 SECONDS (21-34) H 01/23/18 07:13
[2018-01-23] MEDS: Oxycodone/Acetaminophen 5/325 mg Tab PO PRN (16:29)
--- NOTE | 2018-01-23 16:41 | CP.PCM.PN ---
Subjective - Date & Time of Evaluation Date of Evaluation: 01/23/18 Time of Evaluation: 11:30 - Subjective Subjective: Patient seen and examined Chest pain, shortness of breath improved. Afebrile Assessment and Plan: 1. Pulmonary embolism - recommend switching to oral anticoagulation Objective - Vital Signs/Intake and Output Vital Signs (last 24 hours): Temp Pulse Resp BP Pulse Ox 97.8 F 83 20 165/74 H 94 L 01/23/18 16:22 01/23/18 16:22 01/23/18 16:22 01/23/18 16:22 01/23/18 16:22 - Medications Medications: Current Medications Acetaminophen (Tylenol 325mg Tab) 650 mg PO Q6 PRN PRN Reason: pain Last Admin: 01/22/18 08:49 Dose: 650 mg Al Hydrox/Mg Hydrox/Simethicone (Maalox Plus 30 Ml) 30 ml PO Q8H PRN PRN Reason: Indigestion / Heartburn Last Admin: 01/21/18 12:40 Dose: 30 ml Amlodipine Besylate (Norvasc) 10 mg PO HS [facility] Last Admin: 01/22/18 21:40 Dose: 10 mg Heparin Sodium/Sodium Chloride (Heparin 77114 Units/250ml 1/2 Normal Saline) 25 ,000 units in 250 mls @ 9.907 mls/hr IV .Q24H PRN; Protocol; 13 UNITS/KG/HR PRN Reason: PROTOCOL Last Titration: 01/22/18 03:41 Dose: 10 units/kg/hr, 7.62 mls/hr Insulin Human Regular (Novolin R) 0 unit SC ACHS [facility] PRN Reason: Protocol Last Admin: 01/23/18 12:15 Dose: Not Given Metformin HCl (Glucophage Xr) 750 mg PO BIDCC [facility] Last Admin: 01/23/18 08:50 Dose: 750 mg Metoprolol Succinate (Toprol Xl) 50 mg PO DAILY [facility] Last Admin: 01/23/18 09:06 Dose: 50 mg Oxycodone/Acetaminophen (Percocet 5/325 Mg Tab) 1 tab PO Q6H PRN PRN Reason: Pain, severe (8-10) Stop: 01/25/18 15:33 Last Admin: 01/23/18 16:29 Dose: 1 tab Rosuvastatin Calcium (Crestor) 20 mg PO [facility] Last Admin: 01/22/18 21:40 Dose: 20 mg - Labs Labs: 01/23/18 07:13 01/23/18 07:13 APTT 70 SECONDS (21-34) H 01/23/18 07:13 Assessment and Plan (1) Pulmonary embolism Status: Acute
--- NOTE | 2018-01-23 20:36 | CARD ---
APPROVED REPORT EXAM: Two-dimensional and M-mode echocardiogram with Doppler and color Doppler. Other Information Quality : GoodRhythm : INDICATION Pulmonary Embolism Surgery/Intervention Pacemaker: RISK FACTORS Hypertension Hyperlipidemia Diabetes M-Mode DIMENSIONS Left Atrium (MM)3.54 (2.5-4.0cm)IVSd1.04 (0.7-1.1cm) Aortic Root2.22 (2.2-3.7cm)LVDd4.55 (4.0-5.6cm) Aortic Cusp Exc.1.49 (1.5-2.0cm)PWd1.04 (0.7-1.1cm) FS (%) 50 %LVDs2.26 (2.0-3.8cm) LVEF (%)82 (>50%) Aortic Valve AoV Peak Dyvvgfqo534.9cm/Yojana Peak GR.15mmHg Mitral Valve MV E Ooyxzaez63.0cm/sMV A Uxtvdmam651.2cm/sE/A ratio0.6 TDI E/Lateral E'0.0E/Medial E'0.0 Tricuspid Valve TR Peak Yyilpimj117se/sTR Peak Gr.68kmExTFJP80jdIr LEFT VENTRICLE The left ventricle is normal size. There is mild to moderate concentric left ventricular hypertrophy. Left ventricle systolic function is normal. The Ejection Fraction is >70%. There is normal LV segmental wall motion. Transmitral Doppler flow pattern is Grade I-abnormal relaxation pattern. There is no ventricular septal defect visualized. RIGHT VENTRICLE The right ventricle is normal size. The right ventricular systolic function is normal. There is a pacemaker lead in the right ventricle. ATRIA The left atrium is mildly dilated. The right atrium size is normal. AORTIC VALVE The aortic valve is moderately sclerotic. The aortic valve is tri-cuspid. The left coronary cusp is thickenned, needs JESS to evaluate possible vegetation if clinically indicated. No aortic regurgitation is present. There is no aortic valvular stenosis. MITRAL VALVE Mitral annular calcification is borderline. There is no evidence of mitral valve prolapse. Mitral regurgitation is trace. TRICUSPID VALVE The tricuspid valve is normal in structure. There is trace to mild tricuspid regurgitation. Right ventricular systolic pressure is estimated at 50-60 mmHg. There is moderate-severe pulmonary hypertension. PULMONIC VALVE The pulmonic valve is not well visualized. There is no pulmonic valvular regurgitation. GREAT VESSELS The aortic root is normal in size. The IVC is normal in size and collapses >50% with inspiration. PERICARDIAL EFFUSION There are no echocardiographic indications of cardiac tamponade. There is a small circumferential pericardial effusion. <Conclusion> There is mild to moderate concentric left ventricular hypertrophy. Left ventricle systolic function is normal. The Ejection Fraction is >70%. Transmitral Doppler flow pattern is Grade I-abnormal relaxation pattern. The left coronary cusp is thickenned, needs JESS to evaluate possible vegetation if clinically indicated. There is moderate-severe pulmonary hypertension. There is a small circumferential pericardial effusion.
[2018-01-23] MEDS: Heparin25000 units/250ml 1/2NS 25,000 UNITS/250 ML BAG IV PRN (21:38)
--- NOTE | 2018-01-23 22:22 | PN ---
DATE: 01/23/2018 SUBJECTIVE: The patient was seen and examined at bedside. The patient is still complaining of left shoulder pain and neck pain. Denies any other new complaints. REVIEW OF SYSTEMS: All other systems reviewed and was found to be negative. PHYSICAL EXAMINATION GENERAL: Elderly female, lying in bed in no acute distress. VITAL SIGNS: Blood pressure 152/71, pulse 62, respirations 20, temperature 97.9 degrees Fahrenheit, O2 sats are 96% on room air. HEENT: Pupils equal, round and reacting to light and accommodation. Extraocular muscles are intact. No icterus. No pallor. No oral thrush. No pharyngeal congestion. NECK: Supple. No JVD. LUNGS: Bilateral vesicular breath sounds. No wheezing. No rhonchi. CVS: S1, S2 present. Regular. ABDOMEN: Soft. Nontender. Bowel sounds present. No guarding. No rigidity. No rebound tenderness noted. CHEMICAL DEPENDENCY PROFESSIONAL: Alert, awake, oriented x3. No focal deficits noted. EXTREMITIES: No edema. MEDICATIONS: Include Tylenol, Maalox, Norvasc 10 mg daily, heparin drip, Glucophage 750 mg p.o. b.i.d., metoprolol 50 mg daily, Percocet as needed, Crestor 20 mg p.o. h.s. LABORATORY DATA: Labs from this morning, WBC is 6, hemoglobin 13.4, hematocrit 38.3, platelets 215. Sodium 138, potassium 4.6, chloride 102, bicarb 23, BUN 11, creatinine 0.6, glucose 126, calcium 9.1, total bilirubin 0.7, AST 35, ALT 9, alkaline phosphatase 63, total protein 7.6, albumin 3.8. Echo done, results pending. ASSESSMENT AND PLAN: Elderly female with history of hypertension, diabetes mellitus, arthritis, status post permanent pacemaker placement, admitted for PE. Cervical spondylosis with neck pain and calcific tendinopathy of the left shoulder joint. Questionable pericardial effusion on CT. Echo was done,results pending. We will obtain cardiology evaluation. Continue with anticoagulation. Discussed with Pulmonary. We will follow up with echo result. Blood pressure is slightly high. We will monitor blood pressure. Adjust her medication. We will switch IV heparin to oral anticoagulation with Eliquis as recommended by Pulmonary. We will request social sciences research scientist per discharge planning. We will add further recommendations as her clinical course progresses. Kate Marques MD
[2018-01-24] MEDS: (Novolin R) Insulin Human Regular 100 units/ml vial SC SCH ×4 (07:37→21:27)
[2018-01-24 07:44] LABS: HEMOGLOBIN 12.1 g/dL (11.0-16.0); MEAN CELL VOLUME 89.1 fL (81.0-99.0); MEAN CORPUSCULAR HEMOGLOBIN 30.9 pg (27.0-31.0); MEAN CORPUSCULAR HGB CONC 34.7 g/dL (33.0-37.0); MEAN PLATELET VOLUME 9.3 fL (7.2-11.7); RBC 3.93 Mil/uL (3.80-5.20); RED CELL DISTRIBUTION WIDTH 13.8 % (11.5-14.5); WHITE BLOOD COUNT 4.7 K/uL (4.8-10.8)
[2018-01-24] MEDS: Metoprolol Succinate 50 mg XL Tab PO SCH (09:42)
--- NOTE | 2018-01-24 10:55 | CP.PCM.PN ---
Subjective - Date & Time of Evaluation Date of Evaluation: 01/24/18 Time of Evaluation: 10:55 - Subjective Subjective: Progress note dictated #[id number] Objective - Vital Signs/Intake and Output Vital Signs (last 24 hours): Temp Pulse Resp BP Pulse Ox 98.3 F 60 18 115/69 96 01/24/18 08:21 01/24/18 08:21 01/24/18 08:21 01/24/18 08:21 01/23/18 23:30 Intake and Output: 01/24/18 01/24/18 06:59 18:59 Intake Total 310 Balance 310 - Medications Medications: Current Medications Acetaminophen (Tylenol 325mg Tab) 650 mg PO Q6 PRN PRN Reason: pain Last Admin: 01/22/18 08:49 Dose: 650 mg Al Hydrox/Mg Hydrox/Simethicone (Maalox Plus 30 Ml) 30 ml PO Q8H PRN PRN Reason: Indigestion / Heartburn Last Admin: 01/21/18 12:40 Dose: 30 ml Amlodipine Besylate (Norvasc) 10 mg PO HS [facility] Last Admin: 01/23/18 22:07 Dose: 10 mg Apixaban (Eliquis) 10 mg PO BID [facility] Heparin Sodium/Sodium Chloride (Heparin 98761 Units/250ml 1/2 Normal Saline) 25 ,000 units in 250 mls @ 9.907 mls/hr IV .Q24H PRN; Protocol; 13 UNITS/KG/HR PRN Reason: PROTOCOL Last Admin: 01/23/18 21:38 Dose: 10 units/kg/hr, 7.62 mls/hr Insulin Human Regular (Novolin R) 0 unit SC ACHS [facility] PRN Reason: Protocol Last Admin: 01/24/18 07:37 Dose: Not Given Metformin HCl (Glucophage Xr) 750 mg PO BIDCC [facility] Last Admin: 01/24/18 08:44 Dose: 750 mg Metoprolol Succinate (Toprol Xl) 50 mg PO DAILY [facility] Last Admin: 01/24/18 09:42 Dose: 50 mg Oxycodone/Acetaminophen (Percocet 5/325 Mg Tab) 1 tab PO Q6H PRN PRN Reason: Pain, severe (8-10) Stop: 01/25/18 15:33 Last Admin: 01/23/18 16:29 Dose: 1 tab Rosuvastatin Calcium (Crestor) 20 mg PO HS [facility] Last Admin: 01/23/18 22:07 Dose: 20 mg - Labs Labs: 01/24/18 07:35 01/23/18 07:13 APTT 67 SECONDS (21-34) H 01/24/18 07:11
--- NOTE | 2018-01-24 12:29 | CP.PCM.PN ---
Subjective - Date & Time of Evaluation Date of Evaluation: 01/24/18 Time of Evaluation: 07:30 - Subjective Subjective: Patient seen and examined Chest pain, shortness of breath improved. Patient reports that her shoulder/ neck pain persist and that Afebrile Assessment and Plan: 1. Pulmonary embolism - continue current management (heparin drip) - eliquus ordered - Echo showed small pericardial effusion, need for JESS cannot be ruled out Objective - Vital Signs/Intake and Output Vital Signs (last 24 hours): Temp Pulse Resp BP Pulse Ox 98.3 F 60 18 115/69 96 01/24/18 08:21 01/24/18 08:21 01/24/18 08:21 01/24/18 08:21 01/23/18 23:30 Intake and Output: 01/24/18 01/24/18 06:59 18:59 Intake Total 310 Balance 310 - Medications Medications: Current Medications Acetaminophen (Tylenol 325mg Tab) 650 mg PO Q6 PRN PRN Reason: pain Last Admin: 01/22/18 08:49 Dose: 650 mg Al Hydrox/Mg Hydrox/Simethicone (Maalox Plus 30 Ml) 30 ml PO Q8H PRN PRN Reason: Indigestion / Heartburn Last Admin: 01/21/18 12:40 Dose: 30 ml Amlodipine Besylate (Norvasc) 10 mg PO [facility] Last Admin: 01/23/18 22:07 Dose: 10 mg Apixaban (Eliquis) 10 mg PO BID [facility] Last Admin: 01/24/18 11:21 Dose: 10 mg Insulin Human Regular (Novolin R) 0 unit SC [facility] PRN Reason: Protocol Last Admin: 01/24/18 11:57 Dose: Not Given [facility]) [facility] Last Admin: 01/24/18 08:44 Dose: 750 mg Metoprolol Succinate (Toprol Xl) 50 mg PO DAILY [facility] Last Admin: 01/24/18 09:42 Dose: 50 mg Oxycodone/Acetaminophen (Percocet 5/325 Mg Tab) 1 tab PO Q6H PRN PRN Reason: Pain, severe (8-10) Stop: 01/25/18 15:33 Last Admin: 01/23/18 16:29 Dose: 1 tab Rosuvastatin Calcium (Crestor) 20 mg PO [facility] Last Admin: 01/23/18 22:07 Dose: 20 mg - Labs Labs: 01/24/18 07:35 01/23/18 07:13 APTT 67 SECONDS (21-34) H 01/24/18 07:11 Assessment and Plan (1) Pulmonary embolism Status: Acute
--- NOTE | 2018-01-24 13:11 | CP.PCM.PN ---
Subjective - Date & Time of Evaluation Date of Evaluation: 01/24/18 Time of Evaluation: 13:08 - Subjective Subjective: 72F complains of increased neck and left shoulder pain x 4 days. She says the pain was bad so she came to the ER. She reports a fall back in November, where her hands went out in front of her, but no recent trauma or falls. She has had several cervical epidural injections, last in November, with relief. She had recent CT in November as well patient believes. Denies numbness and tingling at this time. Patient states that pain over the last few days has improved significantly since she has been in the hospital. Prior right shoulder RC repair. No left shoulder surgery. Objective - Vital Signs/Intake and Output Vital Signs (last 24 hours): Temp Pulse Resp BP Pulse Ox 98.3 F 60 18 115/69 96 01/24/18 08:21 01/24/18 08:21 01/24/18 08:21 01/24/18 08:21 01/23/18 23:30 Intake and Output: 01/24/18 01/24/18 06:59 18:59 Intake Total 310 Balance 310 - Medications Medications: Current Medications Acetaminophen (Tylenol 325mg Tab) 650 mg PO Q6 PRN PRN Reason: pain Last Admin: 01/24/18 12:46 Dose: 650 mg Al Hydrox/Mg Hydrox/Simethicone (Maalox Plus 30 Ml) 30 ml PO Q8H PRN PRN Reason: Indigestion / Heartburn Last Admin: 01/21/18 12:40 Dose: 30 ml Amlodipine Besylate (Norvasc) 10 mg PO HS REPLACED BY [facility] Last Admin: 01/23/18 22:07 Dose: 10 mg Apixaban (Eliquis) 10 mg PO BID REPLACED BY [facility] Last Admin: 01/24/18 11:21 Dose: 10 mg Insulin Human Regular (Novolin R) 0 unit SC ACHS REPLACED BY [facility] PRN Reason: Protocol Last Admin: 01/24/18 11:57 Dose: Not Given Metformin HCl (Glucophage Xr) 750 mg PO BIDCC REPLACED BY [facility] Last Admin: 01/24/18 08:44 Dose: 750 mg Metoprolol Succinate (Toprol Xl) 50 mg PO DAILY REPLACED BY [facility] Last Admin: 01/24/18 09:42 Dose: 50 mg Oxycodone/Acetaminophen (Percocet 5/325 Mg Tab) 1 tab PO Q6H PRN PRN Reason: Pain, severe (8-10) Stop: 01/25/18 15:33 Last Admin: 01/23/18 16:29 Dose: 1 tab Rosuvastatin Calcium (Crestor) 20 mg PO HS [facility] Last Admin: 01/23/18 22:07 Dose: 20 mg - Labs Labs: 01/24/18 07:35 01/23/18 07:13 APTT 67 SECONDS (21-34) H 01/24/18 07:11 - Neck Exam Neck Exam: Normal Inspection, Tenderness Additional comments: turns body, doesn't turn neck to look around. Pain with neck ROM, complains of tingling into upper back with extension of neck - Extremities Exam Additional comments: Left shoulder; Full ROM without pain. Non tender. 5/5 strength fflex/abd/add/ elbow flex/ext, wrist flex/ext computer processing scheduler sensation intact BUE +radial pulses Assessment and Plan (1) Cervical spondylosis Assessment & Plan: PT/OT pain medication/NSAIDs continue with pain field specialist encourage ROM shoulder improving since admission d/w [facility] above, full consult to follow Status: Acute (2) Left shoulder tendinitis Status: Acute (3) Acute cervical sprain Status: Acute Radiology Interpretation - Radiology Interpretation #2 Interpretation: atient Name / ID : ELIER KAN / [id number] Exam Date : 01/22/2018 16:00:25 ( Approved ) Study Comment : Sex / Age : F / 72Y Creator : Jamshid Bradford MD Dictator : Jamshid Bradford MD [employer] : Aviation Electronics Technician : Jamshid Bradford MD Approver2 : Report Date : 01/22/2018 16:55:46 My Comment : PROCEDURE: Radiographs of the Left Shoulder HISTORY: pain COMPARISON: No prior. FINDINGS: BONES: No acute fracture or destructive bony lesion identified. JOINTS: Degenerative changes are appreciate the acromioclavicular joint prominently but are mild at the acromioclavicular joint. SOFT TISSUES: Calcific tendinopathy is suggested at the region of the rotator cuff. MRI may be helpful if clinically warranted for additional imaging evaluation. OTHER FINDINGS: Portions of cardiac pacemaker incidentally captured. Cardiomegaly is also noted. IMPRESSION: No acute fracture, subluxation or dislocation. Degenerative findings as discussed above. Incidental cardiomegaly and pacemaker identified. - Radiology Interpretation #3 Interpretation: atient Name / ID : ELIER KAN / [id number] Exam Date : 01/22/2018 16:00:25 ( Approved ) Study Comment : Sex / Age : F / 72Y Creator : Jamshid Bradford MD Dictator : Jamshid Bradford MD As[employer]ine : Aviation Electronics Technician : Jamshid Bradford MD Approver2 : Report Date : 01/22/2018 16:56:45 My Comment : PROCEDURE: Cervical Spine Radiographs. HISTORY: Pain. COMPARISON: None. FINDINGS: BONES: Alignment maintained. No fracture. Dens Intact. DISC SPACES: Advanced multilevel cervical spondylosis appreciated concentrated the mid cervical spinal levels. Multilevel facet arthropathy is also diffuse.Normal. SOFT TISSUES: Unremarkable grossly. OTHER FINDINGS: None. IMPRESSION: Multilevel cervical spondylosis without definite fracture or spondylolisthesis identified.
--- NOTE | 2018-01-24 14:49 | CON ---
DATE: HISTORY OF PRESENT ILLNESS: A 72-year-old female was brought in with history of neck pain and back pain. Workup in the hospital had shown that she had pulmonary emboli. She is being treated for the same. The patient has been seen by pulmonary health consultant, Dr. Naseem Honeycutt. Consult is requested by Dr. Marques. She had a history of hypertension and diabetes in the past, more than 10 years. In 2008, the patient underwent permanent pacemaker implantation by Dr. Caldwell at [facility]. She has been closely followed by Dr. Caldwell. Last visit was about 6 months ago. She was doing well. PERSONAL HISTORY: Does not smoke. Does not drink. ALLERGIES: DENIED. FAMILY HISTORY: Negative for premature coronary artery disease. She is , lives with her . REVIEW OF SYSTEMS: Mild fatigue. Able to walk 2 to 3 blocks on level ground and less than a with shortness of breath. Last stress test done was about two years ago. No visual disturbances. No TIAs. No CVAs. No peptic ulcer disease. No bleeding disorders. No hematemesis. No melena. No hemoptysis. Knee pains are noted. No history of depression. PAST MEDICAL HISTORY: History of hysterectomy many years ago and shoulder surgery in the right shoulder. Pacemaker implantation in 2008. CURRENT MEDICATIONS: Include heparin, amlodipine, metformin. PHYSICAL EXAMINATION GENERAL: Elderly female, conscious, alert, in no acute distress. VITAL SIGNS: She is 5 feet, and weighs 168 pounds, her blood pressure is 133/61, heart rate of 70 and regular, respiratory rate of 20, temperature of 98.3. HEENT: Head is normocephalic. Eyes: No pallor. No icterus. Mouth: Complete dentures are noted. NECK: Supple. No bruits. LUNGS: Clear to auscultation. HEART: PMI is not localized. S1 and S2 are distant. No definite gallops. Soft mid systolic murmur in mitral area, grade 1 to 2/6. ABDOMEN: Soft, nontender. No organomegaly. EXTREMITIES: No cyanosis, clubbing, or edema. Distal pulses are intact. NEUROLOGICAL: Awake, alert, and oriented x3. No focal signs. SKIN: Shows placement of a permanent pacemaker on the right infraclavicular area. LABORATORY DATA: White count is normal. White count was 6000, ____ 4.7, there is no shift. Chemistries are unremarkable. EKG showed well -functioning DDD pacemaker with left bundle-branch block pattern. Chest x-ray was unremarkable. Echocardiogram done shows LVH, normal LV systolic function. Calcified aortic leaflets. I do not see definite vegetation. Pulmonary hypertension with pulmonary artery systolic pressure 155. ASSESSMENT: This is a 72-year-old female with history of hypertension, diabetes, and permanent pacemaker. At this point, we would not pursue a workup for endocarditis, given afebrile, no other signs of endocarditis, and asymptomatic female. I thank you kindly and we will follow as needed. Have a nice weekend. Milind Greer MD
[2018-01-24 15:56] VITALS: RESP 20
[2018-01-24] MEDS: Oxycodone/Acetaminophen 5/325 mg Tab PO PRN (21:24)
--- NOTE | 2018-01-25 01:23 | PN ---
DATE: 01/24/2018 SUBJECTIVE: The patient was seen and examined at bedside. Patient is feeling slightly better with her shoulder pain on Percocet. Denies any new complaints. PHYSICAL EXAMINATION: GENERAL: Elderly female, lying in bed, in no acute distress. VITAL SIGNS: Blood pressure , pulse 60, respirations 18, temperature 98.3 degrees Fahrenheit, O2 sat 98% on room air. HEENT: Pupils equal, round and reacting to light and accommodation. Extraocular muscles are intact. No icterus. No pallor. No oral thrush. No pharyngeal congestion. NECK: Supple. No JVD. LUNGS: Bilateral vesicular breath sounds. No wheezing. No rhonchi. CVS: S1, S2 present, regular. ABDOMEN: Soft, nontender, bowel sounds present. No guarding. No rigidity. No rebound tenderness noted. HORSER UP: Alert, awake, and oriented x3. No focal deficits noted. EXTREMITIES: No edema. Palpable peripheral pulses. MEDICATIONS: Include Tylenol as needed, Maalox as needed, Norvasc 10 mg p.o. at bedtime, Eliquis 10 mg p.o. b.i.d., metformin 750 mg p.o. b.i.d., metoprolol 50 mg daily, Percocet one p.o. every 6 hours p.r.n., Crestor 20 mg p.o. at bedtime. LABORATORY DATA: From today, WBC 4.7, hemoglobin 12.1, hematocrit 35, platelets 206. ASSESSMENT AND PLAN: An elderly female with history of hypertension, diabetes mellitus, hyperlipidemia, status post permanent pacemaker placement, osteoarthritis, calcific tendinopathy of the left shoulder, cervical spondylosis, who has been following up with doctors at [facility], admitted for pulmonary embolism, and found to have abnormal echo. The patient is feeling much better with Percocet. Heparin is discontinued and Eliquis is started this morning as per Pulmonary recommendation,10 mg p.o. b.i.d. for one week, followed by 5 mg p.o. b.i.d. for three months. The patient is evaluated by Cardiology. As patient is clinically asymptomatic and no other signs of sepsis, we will hold off JESS as recommended by Cardiology. The patient has her own senior sales associate. I advised the patient and discussed the same with the patient to follow up with Cardiology as outpatient. The patient is otherwise doing fairly better, is clinically better and cleared by Pulmonary. We will plan discharging the patient home in a.m. We will repeat labs in the morning. Kate Marques MD
[2018-01-25 07:22] LABS: BASO % 0.4 % (0.0-2.0); EOS # 0.1 K/uL (0.0-0.7); EOS % 2.6 % (0.0-4.0); HEMOGLOBIN 12.2 g/dL (11.0-16.0); LYMPH # 1.8 K/uL (1.0-4.3); LYMPH % 40.2 % (20.0-40.0); MEAN CELL VOLUME 88.4 fL (81.0-99.0); MEAN CORPUSCULAR HEMOGLOBIN 31.5 pg (27.0-31.0); MEAN CORPUSCULAR HGB CONC 35.7 g/dL (33.0-37.0); MEAN PLATELET VOLUME 9.6 fL (7.2-11.7); MONO # 0.6 K/uL (0.0-0.8); NEUT % 43.8 % (50.0-75.0); RBC 3.88 Mil/uL (3.80-5.20); RED CELL DISTRIBUTION WIDTH 13.5 % (11.5-14.5); WHITE BLOOD COUNT 4.5 K/uL (4.8-10.8)
[2018-01-25 07:52] VITALS: PULSE 60
[2018-01-25 07:55] LABS: ALBUMIN 3.2 g/dL (3.5-5.0); ALT/SGPT 22 U/L (9-52); AST/SGOT 20 U/L (14-36); BLOOD UREA NITROGEN 13 mg/dL (7-17); GFR AFRICAN-AMERICAN > 60; GFR NON-AFRICAN AMERICAN > 60
[2018-01-25] MEDS: (Novolin R) Insulin Human Regular 100 units/ml vial SC SCH ×3 (07:58→17:38)
--- NOTE | 2018-01-25 10:01 | CON ---
DATE: I was called in by Dr. Marques for evaluation of this patient. HISTORY OF PRESENT ILLNESS: This 72-year-old female is admitted on 01/21/2018 with complaints of increased neck and shoulder pain for the past 4 days. No history of trauma is given. She says the pain was intense and she came to the emergency room. She gives history of sustaining a fall about two months ago, but did not give any history of recent falls. She gives a history of chronic neck pain and received multiple cervical epidural injections and the last injection was on November of this year. She denies any history of pain radiating to the upper extremities. She is also complaining of pain in the left shoulder. PHYSICAL EXAMINATION: Examination of the neck reveals limited range of motion, namely flexion and extension, right and left lateral rotation terminal 15 degrees. Moderate paravertebral muscle spasm noted. Tenderness on C3 through T1 noted. Bilateral trapezius spasm noted. Rest of the neurological exam is within normal limits. Examination of the left shoulder reveals tenderness over the anterior aspect of the shoulder. Abduction, flexion, internal rotation restricted in the terminal 20 degrees. Impingement sign is highly positive. Speed test is negative. No evidence of instability noted. Tenderness noted over the acromioclavicular joint. Abduction, flexion, internal rotation are restricted in the terminal at 20 degrees. X-rays of the left shoulder revealed moderate narrowing of the acromioclavicular joint space and some calcification of the subacromial area. X-rays of the cervical spine revealed diffuse intervertebral disk space narrowing at multiple levels and also evidence of multilevel facet arthropathy seen. DIAGNOSES: 1. Rotator cuff tendinitis of the left shoulder. 2. Multilevel cervical degenerative disk disease. At this time, the patient is advised to continue with the machine paint mixer regarding the pain management for the neck. We will start the patient on physical therapy for the left shoulder and the neck including moist heat, range of motion and modalities. We will follow with the patient. Austin Guardado MD
[2018-01-25] MEDS: Metoprolol Succinate 50 mg XL Tab PO SCH (10:57)
--- NOTE | 2018-01-25 12:39 | CP.PCM.PN ---
Subjective - Date & Time of Evaluation Date of Evaluation: 01/25/18 Time of Evaluation: 12:37 - Subjective Subjective: doing ok. Objective - Vital Signs/Intake and Output Vital Signs (last 24 hours): Temp Pulse Resp BP Pulse Ox 97.9 F 60 20 133/62 100 01/25/18 07:51 01/25/18 07:51 01/25/18 07:51 01/25/18 07:51 01/25/18 07:51 - Medications Medications: Current Medications Acetaminophen (Tylenol 325mg Tab) 650 mg PO Q6 PRN PRN Reason: pain Last Admin: 01/24/18 12:46 Dose: 650 mg Al Hydrox/Mg Hydrox/Simethicone (Maalox Plus 30 Ml) 30 ml PO Q8H PRN PRN Reason: Indigestion / Heartburn Last Admin: 01/21/18 12:40 Dose: 30 ml Amlodipine Besylate (Norvasc) 10 mg PO [facility] Last Admin: 01/24/18 21:21 Dose: 10 mg Apixaban (Eliquis) 10 mg PO BID [facility] Last Admin: 01/25/18 10:57 Dose: 10 mg Insulin Human Regular (Novolin R) 0 unit SC [facility] PRN Reason: Protocol Last Admin: 01/25/18 07:58 Dose: Not Given Met[facility] ([facility]) [facility] Last Admin: 01/25/18 08:33 Dose: 750 mg Metoprolol Succinate (Toprol Xl) 50 mg PO DAILY [facility] Last Admin: 01/25/18 10:57 Dose: 50 mg Oxycodone/Acetaminophen (Percocet 5/325 Mg Tab) 1 tab PO Q6H PRN PRN Reason: Pain, severe (8-10) Stop: 01/25/18 15:33 Last Admin: 01/24/18 21:24 Dose: 1 tab Rosuvastatin Calcium (Crestor) 20 mg PO [facility] Last Admin: 01/24/18 21:22 Dose: 20 mg - Labs Labs: 01/25/18 07:07 01/25/18 07:07 APTT 67 SECONDS (21-34) H 01/24/18 07:11 - Constitutional Appears: No Acute Distress - Head Exam Head Exam: NORMOCEPHALIC - Eye Exam Eye Exam: Normal appearance - Neck Exam Neck Exam: Normal Inspection - Respiratory Exam Respiratory Exam: Clear to Ausculation Bilateral - Cardiovascular Exam Cardiovascular Exam: REGULAR RHYTHM - GI/Abdominal Exam GI & Abdominal Exam: Soft - Extremities Exam Extremities Exam: absent: Pedal Edema - Neurological Exam Neurological Exam: Alert, Oriented x3 Assessment and Plan - Assessment and Plan (Free Text) Assessment: s/p pacemaker.no need for endocarditis w/u. will sign off. thanks,
--- NOTE | 2018-01-25 16:31 | CP.PCM.PN ---
Subjective - Date & Time of Evaluation Date of Evaluation: 01/25/18 Time of Evaluation: 16:00 - Subjective Subjective: Discharge summary dictated #[id number] Objective - Vital Signs/Intake and Output Vital Signs (last 24 hours): Temp Pulse Resp BP Pulse Ox 97.9 F 60 20 133/62 100 01/25/18 07:51 01/25/18 07:51 01/25/18 07:51 01/25/18 07:51 01/25/18 07:51 - Medications Medications: Current Medications Acetaminophen (Tylenol 325mg Tab) 650 mg PO Q6 PRN PRN Reason: pain Last Admin: 01/24/18 12:46 Dose: 650 mg Al Hydrox/Mg Hydrox/Simethicone (Maalox Plus 30 Ml) 30 ml PO Q8H PRN PRN Reason: Indigestion / Heartburn Last Admin: 01/21/18 12:40 Dose: 30 ml Amlodipine Besylate (Norvasc) 10 mg PO HS [facility] Last Admin: 01/24/18 21:21 Dose: 10 mg Apixaban (Eliquis) 10 mg PO BID [facility] Last Admin: 01/25/18 10:57 Dose: 10 mg Insulin Human Regular (Novolin R) 0 unit SC ACHS [facility] PRN Reason: Protocol Last Admin: 01/25/18 07:58 Dose: Not Given Metformin HCl (Glucophage Xr) 750 mg PO BIDCC [facility] Last Admin: 01/25/18 08:33 Dose: 750 mg Metoprolol Succinate (Toprol Xl) 50 mg PO DAILY [facility] Last Admin: 01/25/18 10:57 Dose: 50 mg Rosuvastatin Calcium (Crestor) 20 mg PO HS [facility] Last Admin: 01/24/18 21:22 Dose: 20 mg - Labs Labs: 01/25/18 07:07 01/25/18 07:07 APTT 67 SECONDS (21-34) H 01/24/18 07:11
[2018-01-25 16:46] VITALS: BP 147/71; TEMP 99; O2SAT 95
--- NOTE | 2018-01-26 07:30 | DS ---
DISCHARGE DIAGNOSES: Distal pulmonary embolism, hypertension, hyperlipidemia, diabetes mellitus, calcific tendinopathy of the left shoulder, cervical spondylosis, history of pacemaker placement, abnormal echocardiogram with trace pericardial effusion. HISTORY OF PRESENT ILLNESS: Ms. Mcduffie is a 72-year-old female with past medical history of hypertension, hyperlipidemia, diabetes mellitus, osteoarthritis, degenerative joint disease of the cervical spine, left shoulder tendinopathy, status post permanent pacemaker placement, admitted for left shoulder pain and neck pain, found to be having distal pulmonary emboli, and the patient is being admitted for further management. Today, the patient is feeling much better. Denies any headache or dizziness. Denies any chest pain, shortness of breath or wheezing. Denies any nausea, vomiting, abdominal pain, diarrhea or constipation. Denies any urinary complaints. Denies any leg pains or leg cramps. Denies any other neurological symptoms. Her left shoulder pain and neck pain is improving on Percocet. PHYSICAL EXAMINATION: GENERAL: Elderly female, sitting in bed, in no acute distress. VITAL SIGNS: Blood pressure 133/62, pulse 60, respirations 20, temperature 97.9 degrees Fahrenheit, O2 sats 100% on room air. HEENT: Pupils equal, round, and reactive to light and accommodation. Extraocular muscles are intact. No icterus. No pallor. No oral thrush. No pharyngeal congestion. No nasal congestion. NECK: Supple. No JVD. No thyromegaly. CHEST: Moving equally and bilaterally on respiration. LUNGS: Bilateral vesicular breath sounds. No wheezing. No rhonchi. CVS: S1, S2 present. Regular. ABDOMEN: Soft. Nontender. Bowel sounds present. No guarding. No rigidity. No rebound tenderness noted. PENCILLER: Alert, awake, oriented x3. No focal deficits noted. EXTREMITIES: No edema. Palpable peripheral pulses. Left shoulder pain improved and range of motion around the left shoulder joint improved from admission. LABORATORY DATA: Labs done today, WBC 4.5, hemoglobin 12.2, hematocrit 34.3, platelets 201. Sodium 140, potassium 4.1, chloride 102, bicarbonate 29, BUN 13, creatinine 0.6, glucose 92, calcium 9.0. LFTs within normal limits. CT of chest consistent with PE. Lower extremity Doppler negative for any DVT. Cervical spine, consistent with cervical spondylosis. Shoulder x-ray consistent with calcific tendinopathy. Echocardiogram showed ejection fraction more than 70. Left coronary cusp is thickened. Moderate to severe pulmonary hypertension. A small circumferential pericardial effusion. HOSPITAL COURSE: The patient was admitted to telemetry for PE and neck pain. The patient was started on IV heparin. The patient was evaluated by Pulmonary. Recommended Eliquis 10 mg p.o. b.i.d. for seven days followed by 5 mg p.o. b.i.d. for three months. As per pulmonary recommendations, the patient was started on Eliquis. On the initial admission CT chest, it showed moderate pericardial effusion for which the patient underwent echocardiogram. Echocardiogram showed thickened aortic valve cusp for which Cardiology was consulted. As patient is afebrile and no other signs of infection, a JESS is deferred at this time. The patient was also evaluated by Orthopedics for left shoulder pain and neck pain. The patient's symptoms improved with Percocet. The patient is also getting physical therapy and occupational therapy. The patient was started on Eliquis yesterday. She remained asymptomatic for more than 24 hours without any other side effects. I tried calling the patient's [facility] at [phone]. I spoke to the pharmacist, unable to find out if Eliquis is covered under her insurance plan as the pharmacy does not have the patient's new prescription coverage information. Discussed with the patient at length regarding the need for taking the medication. I explained all the side effects and risks and benefits of long-term anticoagulation. The patient understands the pros and cons of being on long-term anticoagulation and agrees with taking anticoagulation. Advised the patient to check with the pharmacy if Eliquis is covered or not. I advised the patient to call me or come to the emergency room if any problem with the prescription. The patient is otherwise hemodynamically stable and is willing to follow up with all the consultants as outpatient. So, the patient is being discharged. CONDITION UPON DISCHARGE: The patient is alert, awake, oriented x3, and hemodynamically stable at the time of discharge. DISCHARGE INSTRUCTIONS: Follow up with PMD. Follow up with Pulmonary. Follow up with Cardiology. Follow up with Orthopedics. Needs physical therapy and occupational therapy as outpatient. DISCHARGE DIET: Heart-healthy, low-sodium, low-cholesterol, 18,000 calorie ADA diet. ACTIVITY: As tolerated. DISCHARGE MEDICATIONS: Amlodipine 10 mg p.o. at bedtime; Eliquis 10 mg p.o. b.i.d. for 6 days, then 5 mg p.o. b.i.d.; Lipitor 40 mg p.o. at bedtime; metformin 50 mg p.o. b.i.d.; metoprolol 50 mg p.o. daily; Percocet 1 tab as needed for shoulder pain. The patient was advised to return to the ED if any new symptoms or recurrent symptoms occur. Kate Marques MD
== END 2018-01-25 19:40 | disposition home or self-care (01) | DRG 176 ==
LOC: C.ER 22:27 → C.9E 01-21 03:10 → C.5S 01-21 07:59 → C.6T 01-24 13:10
PROVIDERS: ADMIT Internal Medicine; ATTEND Internal Medicine
DX: I26.99 Other pulmonary embolism without acute cor pulmonale (principal); I31.3 Pericardial effusion (noninflammatory); M47.812 Spondylosis without myelopathy or radiculopathy, cervical region; M50.30 Other cervical disc degeneration, unspecified cervical region; M75.32 Calcific tendinitis of left shoulder; M46.92 Unspecified inflammatory spondylopathy, cervical region; E11.9 Type 2 diabetes mellitus without complications; E78.5 Hyperlipidemia, unspecified; I11.9 Hypertensive heart disease without heart failure; Z79.01 Long term (current) use of anticoagulants; Z95.0 Presence of cardiac pacemaker; Z79.84 Long term (current) use of oral hypoglycemic drugs